=== PATIENT | female | born 1965 | race Caucasian/White ===

== ENCOUNTER 2019-05-13 18:57 | Inpatient (IN) ==
[2019-05-13] MEDS ORDERED: Ibuprofen 800 MG TABLET PO PRN (19:10)
[2019-05-13] MEDS: (Diclofenac Sodium [Voltaren] 100 GM) TP SCH (22:22)
[2019-05-13] MEDS: Gabapentin 300 MG CAPSULE PO SCH (22:23)
[2019-05-14] MEDS: *HR* OxyCODONE Immed Rel 5 MG TABLET PO PRN ×5 (00:34→22:24)
[2019-05-14] MEDS: Gabapentin 300 MG CAPSULE PO SCH ×3 (08:56→22:23)
[2019-05-14] MEDS: BuPROPion SR (12 HR) 150 MG TABLET PO SCH (08:56)
[2019-05-14] MEDS: *HR* Metformin 500 MG TABLET PO SCH (08:56)
[2019-05-14] MEDS: (Diclofenac Sodium [Voltaren] 100 GM) TP SCH ×2 (08:57→22:24)
[2019-05-14] MEDS ORDERED: hydroCHLOROthiazide 25 MG TABLET PO SCH (09:00)
--- NOTE | 2019-05-14 16:22 | Internal Med History&Physical ---
Date of Encounter: 05/14/19 Time of Encounter: 15:55 Assessment and Plan (1) Status post lumbar spinal fusion Current visit: No Status: Acute PT and OT evaluation with ongoing intervention will be done. Lovenox will be given for DVT prophylaxis. Follow up with Dr. Ty/staff as directed. (2) CKD (chronic kidney disease) stage 2, GFR 60-89 ml/min Current visit: Yes Status: Chronic HCTZ dose will be decreased. Ibuprofen will be discontinued. Renal indices will be monitored. (3) COPD (chronic obstructive pulmonary disease) Current visit: No Status: Acute Continue pro-air MDI as needed. Qualifiers: COPD type: unspecified COPD Qualified Code(s): J44.9 - Chronic obstructive pulmonary disease, unspecified (4) Diabetes Current visit: No Status: Chronic Hemoglobin A1c 7.8% on 05/09/2019. Continue Glucophage and Accu-Cheks with SSI. Qualifiers: Diabetes mellitus type: type 2 Diabetes mellitus jail insulin use: wit hout adjunct faculty for medical terminology use Diabetes mellitus complication status: without complication Qualified Code(s): E11.9 - Type 2 diabetes mellitus without complications (5) HTN (hypertension) Current visit: No Status: Chronic Reduce HCTZ to avoid worsening chronic kidney disease. Blood pressure will be monitored and medication adjusted as needed. Qualifiers: Hypertension type: essential hypertension Qualified Code(s): I10 - Essen tial (primary) hypertension (6) PTSD (post-traumatic stress disorder) Current visit: Yes Status: Acute Continue bupropion. Internal Medicine - H&P: HPI Chief complaint: Posterior lumbar interbody fusion L5-S1 Admitted From: Hospital to Hospital Transfer Plans for Post Hospital Care: Home History of present illness: Ms. Canada is a 53 year old female who was admitted [facility] swing bed 05/13/2019 following a May 10 stay at [facility] where she underwent L5-S1 posterior lumbar interbody fusion by Dr. Ty. Her postoperative course was unremarkable and she was discharged to [facility] swing bed for rehabilitation therapy prior to return to independent living at home. Musko skeletal history is pertinent for DJD. She denies gout or other bone joint or muscle disorders. Past Med Surg Social Fam HX - Past Medical History Medical history: arthritis, COPD, diabetes, hyperlipidemia, hypertension, liver disease, myocardial infarction, other Additional medical history: depression, DDD, malformation R lung, fatty liver, PTSD, plantar fasciitis, lumbar stenosis [facility] Psychiatric history: anxiety, depression, PTSD - Past Surgical History Surgical History: , cholecystectomy, other Additional surgical history: tonsillectomy, cardiac ablation, kidney stone surgery - Social History Smoking Status: Never smoker Smokeless Tobacco Status: No Alcohol use: none Drug use: cocaine - Family History Mother Family Member Ethnicity: Non- Living Status: Hx Family Cardiac Disorders: Yes Hx Family Cancer: Yes (Pancreatic, Bone) Hx Family Endocrine Disorder: Yes (DM) Father Family Member Ethnicity: Non- Living Status: Hx Family Cardiac Disorders: Yes (Stroke, HF, SD, HTN) Hx Family Endocrine Disorder: Yes (Liver disease) Brother Family Member Ethnicity: Non- Living Status: Hx Family Cardiac Disorders: Yes (HF) Hx Family Endocrine Disorder: Yes (DM) Sister Family Member Ethnicity: Non- Living Status: Hx Family Cardiac Disorders: Yes (HTN) Hx Family Endocrine Disorder: Yes (DM) Internal Medicine - H&P: Meds Albuterol Sulfate [Proventil Inhaler] 2 puff IH Q4HR PRN #1 unit 01/04/17 [Rx] BuPROPion SR (12 HR) [Wellbutrin SR] 150 mg PO DAILY 05/10/17 [History] Oxybutynin [Ditropan] 5 mg PO TID 05/10/17 [History] hydroCHLOROthiazide [Hydrochlorothiazide] 25 mg PO DAILY 05/10/17 [History] metFORMIN [Glucophage] 500 mg PO 0800 #30 tablet 11/10/18 [Rx] Diclofenac Sodium [Voltaren] 100 gm TP BID 05/10/19 [History] Doxepin HCl 10 mg PO HS 05/10/19 [History] Gabapentin [Neurontin] 600 mg PO TID 05/10/19 [History] Ibuprofen [Ibu] 800 mg PO BID PRN 05/10/19 [History] Docusate Sodium [Colace] 100 mg PO BID 5 Days #10 capsule 05/12/19 [Rx] OxyCODONE Immed Rel [Roxicodone 5 MG] 5 mg PO Q6HR PRN 5 Days #20 tablet 05/12/19 [Rx] Allergy/AdvReac Type Severity Reaction Status Date / Time No Known Allergies Allergy Verified 05/10/19 07:00 All Systems PM: A 10-system review of systems was performed and is negative for pertinent findings except as documented above in the HPI. Review of systems: Gen.: Her weight has decreased from 105.415 kg 05/10/2017 to 103.88 kg today. Cardiovascular: She has history of hypertension but denies SD heart failure angina DVT or pulmonary embolus. Echocardiogram 05/10/2017 showed LVEF of 60- 65%. No significant valvular abnormality was seen. Interventricular septum and posterior wall thickness measurements were 1.00 and 0.90 cm respectively. E/A ratio was 1.0. Regadenoson EST 05/11/2017 showed EKG and perfusion imaging negative for ischemia or infarct. Respiratory: She is lifelong nonsmoker. She reports a diagnosis of COPD from PFTs approximately 2015. She does not use home oxygen. She has not been tested for FILIBERTO. 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 She denies disorders otherwise of her liver gallbladder or exocrine pancreas : She was unaware she has chronic kidney disease stage 2-3. She denies other kidney or bladder disorders. Neurologic: She denies large distribution strokes or seizures. Endocrine: She was diagnosed with DM 2 approximately 2014. Hemoglobin A1c was 7.8% on 05/09/2019. She has hyperlipidemia. She denies thyroid disease. Hematology/oncology: She developed anemia postoperatively. She denies other b lood disorders or internal malignancies. Psychiatric: She claims a diagnosis of PTSD. She denies other mental health diagnoses. Musko skeletal: As per history of present illness - Constitutional Vitals: Temp Pulse Resp BP Pulse Ox 98.7 F 98 16 109/66 92 05/14/19 08:04 05/14/19 08:04 05/14/19 08:04 05/14/19 08:04 05/14/19 08:04 Exam: Gen.: She is a well-developed overweight female lying in bed who appears in no acute distress. She denies pain. HEENT: Head is atraumatic and normocephalic. Eyes: EOMI. There is no scleral icterus. Mouth: Mucosa is moist. Neck: There is no thyromegaly or adenopathy noted. Heart: Regular without murmurs gallops or ectopics Lungs: No wheezes or crackles are heard. Abdomen: She has a large abdomen. She is lying on her left side limiting good palpation. No tenderness is noted. Extremities: There is no cyanosis edema or clubbing noted. Dorsalis pedis and posterior tibial pulses are trace palpable bilaterally. Her feet are warm to touch. Neurologic: Mental status: She is talkative and a good historian. Cranial nerves: Smile is symmetric. Forehead wrinkles bilaterally. Tongue protrudes midline. EOMI. Motor: There is no pronator drift. Cerebellar: Finger to nose is intact bilaterally. Skin: Warm and dry
[2019-05-14] MEDS: Insulin LISPRO 300 UNITS/3 ML VIAL SQ SCH (22:24)
[2019-05-15] MEDS: *HR* OxyCODONE Immed Rel 5 MG TABLET PO PRN ×4 (04:44→21:29)
[2019-05-15] MEDS: *HR* Enoxaparin 40 MG/0.4 ML SYRINGE SQ SCH (04:45)
[2019-05-15 06:00] LABS: Basophils % 0.4 %; Eosinophils # 0.2 K/mcL (0.0-0.6); Eosinophils % 1.5 %; Hematocrit 28.1 % (35.3-44.9); Hemoglobin 9.3 g/dL (11.5-15.4); Immature Granulocytes % 1.2 % (0-4); Lymphocytes # 2.1 K/mcL (0.6-4.6); Lymphocytes % 19.1 %; Mean Corpuscular HGB Conc 33.1 g/dL (31.6-35.5); Mean Corpuscular Hemoglobin 29.9 pg (28.0-33.3); Mean Corpuscular Volume 90.4 fL (83.0-100.0); Mean Platelet Volume 11.1 fL (9.4-12.4); Monocytes # 0.9 K/mcL (0.0-1.3); Monocytes % 7.6 %; Neutrophils # 7.9 K/mcL (1.6-8.9); Platelet Count 251 K/mcL (140-400); Red Blood Count 3.11 M/mcL (3.82-4.97); Red Cell Distribution Width 13.5 % (11.5-14.5); Segmented Neutrophils % 70.2 %; White Blood Count 11.2 K/mcL (4.3-11.1)
[2019-05-15 06:18] LABS: BUN/Creatinine Ratio 18 (6-26); Blood Urea Nitrogen 16 mg/dL (6-20); Calcium 9.1 mg/dL (8.6-10.3); Carbon Dioxide 34 mEq/L (23-29); Chloride 92 mEq/L (98-107); Glucose 190 mg/dL (70-105); Osmolality,Calculated 286 (280-300); Potassium 3.5 mEq/L (3.5-5.1); Sodium 135 mEq/L (136-145); eGFR For African Americans > 60 (> 60); eGFR For Non-African Americans > 60 (> 60)
[2019-05-15] MEDS ORDERED: hydroCHLOROthiazide 25 MG TABLET PO SCH (09:00)
[2019-05-15] MEDS: Gabapentin 300 MG CAPSULE PO SCH ×3 (09:02→21:29)
[2019-05-15] MEDS: *HR* Metformin 500 MG TABLET PO SCH (09:03)
[2019-05-15] MEDS: BuPROPion SR (12 HR) 150 MG TABLET PO SCH (09:03)
[2019-05-15] MEDS: Insulin LISPRO 300 UNITS/3 ML VIAL SQ SCH ×4 (09:04→21:30)
[2019-05-15] MEDS: (Diclofenac Sodium [Voltaren] 100 GM) TP SCH ×2 (09:06→21:39)
[2019-05-15 09:32] LABS: Folate 15.6 ng/mL (3.0-16.0)
[2019-05-15 09:48] LABS: % Iron Saturation 12 % (15-50); Iron 30 mcg/dL (50-170); Transferrin 184 mg/dL (203-362)
[2019-05-15 10:06] LABS: Ferritin 347 ng/mL (10-120)
--- NOTE | 2019-05-15 15:07 | Internal Med Progress Note ---
Date of Encounter: 05/15/19 Time of Encounter: 15:00 - Assessment and plan (1) Status post lumbar spinal fusion Current Visit: No Status: Acute Assessment and plan: May 15. Continue PT/OT intervention with Lovenox. Follow-up with Dr. Ty/staff as directed. (2) CKD (chronic kidney disease) stage 2, GFR 60-89 ml/min Current Visit: Yes Status: Chronic Assessment and plan: May 15. Monitor renal indices. (3) COPD (chronic obstructive pulmonary disease) Current Visit: No Status: Acute Assessment and plan: May 15. Continue pro-air MDI as needed. Qualifiers: COPD type: unspecified COPD Qualified Code(s): J44.9 - Chronic obstructive pulmonary disease, unspecified (4) Diabetes Current Visit: No Status: Chronic Assessment and plan: May 15. Hemoglobin A1c was 7.8% on 05/09/2019. Continue Glucophage and Accu-Cheks with SSI. Qualifiers: Diabetes mellitus type: type 2 Diabetes mellitus terminal supervisor insulin use: without senior care use Diabetes mellitus complication status: without complication Qualified Code(s): E11.9 - Type 2 diabetes mellitus without complications (5) HTN (hypertension) Current Visit: No Status: Chronic Assessment and plan: May 15. Blood pressure borderline low. Hold HCTZ. Qualifiers: Hypertension type: essential hypertension Qualified Code(s): I10 - Essenti al (primary) hypertension (6) PTSD (post-traumatic stress disorder) Current Visit: Yes Status: Acute Assessment and plan: May 15. Continue bupropion - Subjective Interval history: May 15. She has no new complaints. She denies significant pain at rest but reports right hip discomfort on significant movement. - Constitutional Vitals: Temp Pulse Resp BP Pulse Ox 99.7 F H 91 18 107/69 90 05/15/19 07:46 05/15/19 07:46 05/15/19 07:46 05/15/19 07:46 05/15/19 07:46 Exam: She is resting comfortably in bed and appears in no acute distress. Her affect is overall cheerful. I reviewed her medications and lab results. Internal Medicine: Result - Labs CBC & Chem 7: 05/15/19 05:24 05/15/19 05:24 Labs: Short CBC 05/15/19 Range/Units 05:24 WBC 11.2 H (4.3-11.1) K/mcL Hgb 9.3 L (11.5-15.4) g/dL Hct 28.1 L (35.3-44.9) % Plt Count 251 (140-400) K/mcL Neutrophils # 7.9 (1.6-8.9) K/mcL BMP 05/15/19 05:24 Sodium 135 L Potassium 3.5 Chloride 92 L Carbon Dioxide 34 H BUN 16 Creatinine 0.90 Glucose 190 H Calcium 9.1 Consult Discharge Plan - Plan Referrals: Roberto Carlos Edmond DO [Primary Care Provider] - 1 week
[2019-05-16] MEDS: *HR* OxyCODONE Immed Rel 5 MG TABLET PO PRN ×3 (04:09→17:43)
[2019-05-16] MEDS: Ascorbic Acid 500 MG TABLET PO SCH (06:47)
[2019-05-16] MEDS: *HR* Enoxaparin 40 MG/0.4 ML SYRINGE SQ SCH (06:47)
[2019-05-16] MEDS: (Diclofenac Sodium [Voltaren] 100 GM) TP SCH ×2 (08:30→21:53)
[2019-05-16] MEDS: BuPROPion SR (12 HR) 150 MG TABLET PO SCH (08:36)
[2019-05-16] MEDS: Insulin LISPRO 300 UNITS/3 ML VIAL SQ SCH ×4 (08:36→21:52)
[2019-05-16] MEDS: *HR* Metformin 500 MG TABLET PO SCH (08:36)
[2019-05-16] MEDS: Gabapentin 300 MG CAPSULE PO SCH ×3 (08:36→21:52)
--- NOTE | 2019-05-16 16:33 | Internal Med Progress Note ---
Date of Encounter: 05/16/19 Time of Encounter: 16:26 - Assessment and plan (1) Status post lumbar spinal fusion Current Visit: No Status: Acute Assessment and plan: May 15. Continue PT/OT intervention with Lovenox. Follow-up with Dr. Ty/staff as directed. (2) CKD (chronic kidney disease) stage 2, GFR 60-89 ml/min Current Visit: Yes Status: Chronic Assessment and plan: May 15. Monitor renal indices. May 16. BUN and creatinine WNL at 16 and 0.90 respectively with estimated GFR> 60. Continue present Rx. (3) COPD (chronic obstructive pulmonary disease) Current Visit: No Status: Acute Assessment and plan: May 15. Continue pro-air MDI as needed. Qualifiers: COPD type: unspecified COPD Qualified Code(s): J44.9 - Chronic obstructive pulmonary disease, unspecified (4) Diabetes Current Visit: No Status: Chronic Assessment and plan: May 15. Hemoglobin A1c was 7.8% on 05/09/2019. Continue Glucophage and Accu-Cheks with SSI. Qualifiers: Diabetes mellitus type: type 2 Diabetes mellitus prison insulin use: without long winder tender use Diabetes mellitus complication status: without complication Qualified Code(s): E11.9 - Type 2 diabetes mellitus without complications (5) HTN (hypertension) Current Visit: No Status: Chronic Assessment and plan: May 15. Blood pressure borderline low. Hold HCTZ. Qualifiers: Hypertension type: essential hypertension Qualified Code(s): I10 - Essential (primary) hypertension (6) PTSD (post-traumatic stress disorder) Current Visit: Yes Status: Acute Assessment and plan: May 15. Continue bupropion (7) Anemia Current Visit: Yes Status: Acute Assessment and plan: May 16. Anemia testing yesterday showed iron 30, transferrin saturation 12%, transferrin 184, ferritin 347, B12 438, and folate 15.6. She was started on ferrous sulfate with ascorbic acid. Qualifiers: Anemia type: iron deficiency Iron deficiency anemia type: unspecified iron deficiency Qualified Code(s): D50.9 - Iron deficiency anemia, unspecified - Subjective Interval history: May 15. She has no new complaints. She denies significant pain at rest but reports right hip discomfort on significant movement. May 16. She has no new complaints. She denies any pain today. She states she is able to do ADLs and a significant amount of walking. She wishes to be discharged home tomorrow. - Constitutional Vitals: Temp Pulse Resp BP Pulse Ox 98.5 F 85 16 99/62 94 05/16/19 07:05 05/16/19 07:05 05/16/19 07:05 05/16/19 07:05 05/16/19 07:05 Exam: She is resting comfortably in bed and appears in no acute distress. Her affect is bright and cheerful. I reviewed her medications and lab results. Internal Medicine: Result - Labs CBC & Chem 7: 05/15/19 05:24 05/15/19 05:24 Consult Discharge Plan - Plan Referrals: Roberto Carlos Edmond DO [Primary Care Provider] - 1 week
[2019-05-17] MEDS: *HR* OxyCODONE Immed Rel 5 MG TABLET PO PRN ×2 (01:36→08:48)
[2019-05-17] MEDS: *HR* Enoxaparin 40 MG/0.4 ML SYRINGE SQ SCH (06:45)
[2019-05-17] MEDS: Ascorbic Acid 500 MG TABLET PO SCH (06:45)
[2019-05-17 06:53] VITALS: BP 107/58
[2019-05-17] MEDS: (Diclofenac Sodium [Voltaren] 100 GM) TP SCH (08:38)
[2019-05-17] MEDS: Gabapentin 300 MG CAPSULE PO SCH (08:48)
[2019-05-17] MEDS: Insulin LISPRO 300 UNITS/3 ML VIAL SQ SCH ×2 (08:49→12:27)
[2019-05-17] MEDS: BuPROPion SR (12 HR) 150 MG TABLET PO SCH (08:49)
[2019-05-17] MEDS: *HR* Metformin 500 MG TABLET PO SCH (08:49)
--- NOTE | 2019-05-17 10:31 | Discharge Summary ---
Date of Encounter: 05/17/19 Time of Encounter: 10:20 - Discharge Diagnosis (1) Status post lumbar spinal fusion Priority: Primary Status: Acute (2) CKD (chronic kidney disease) stage 2, GFR 60-89 ml/min Priority: Secondary Status: Chronic (3) COPD (chronic obstructive pulmonary disease) Priority: Secondary Status: Acute Qualifiers: COPD type: unspecified COPD Qualified Code(s): J44.9 - Chronic obstructive pulmonary disease, unspecified (4) Diabetes Priority: Secondary Status: Chronic Qualifiers: Diabetes mellitus type: type 2 Diabetes mellitus custodial insulin use: without continuous churn buttermaker use Diabetes mellitus complication status: without complication Qualified Code(s): E11.9 - Type 2 diabetes mellitus without complications (5) HTN (hypertension) Priority: Secondary Status: Chronic Qualifiers: Hypertension type: essential hypertension Qualified Code(s): I10 - Essential (primary) hypertension (6) PTSD (post-traumatic stress disorder) Priority: Secondary Status: Acute (7) Anemia Priority: Secondary Status: Acute Qualifiers: Anemia type: iron deficiency Iron deficiency anemia type: unspecified iron deficiency Qualified Code(s): D50.9 - Iron deficiency anemia, unspecified Hospital course: Ms. Canada is a 53 year old female who was admitted [facility] swing bed 05/13/2019 following a May 10 stay at [facility] where she underwent L5-S1 posterior lumbar interbody fusion by Dr. Ty. Her postoperative course was unremarkable and she was discharged to [facility] swing bed for rehabilitation therapy prior to return to independent living at home. I saw her on May 14 and performed a swing bed history and physical. She had physical therapy and occupational therapy evaluations with ongoing intervention. She made satisfactory progress and had no complaints of pain the last 2 days of hospitalization. On May 17 arrangements were complete for her to be discharged home. Anemia testing showed iron 30, transferrin saturation 12%, transferrin 184, ferritin 347, B12 438, and folate 15.6. She was started on ferrous sulfate with ascorbic acid and will remain on these at discharge. NSAIDs will be discontinued. HCTZ was held due to borderline hypotension. Her blood pressure returned to mid normal range. She will remain off HCTZ at discharge. She will follow with her PCP Dr. Edmond within 1 week. She will follow with Dr. Ty as directed. - Time Spent with Patient Total time spent providing and/or coordinating discharge services: - Discharge Medications Prescriptions: New Ferrous Sulfate 325 mg PO 0630 #30 tablet Ascorbic Acid [Vitamin C] 500 mg PO 0630 #30 tablet Continued Albuterol Sulfate [Proventil Inhaler] 2 puff IH Q4HR PRN #1 unit PRN Reason: Wheezing Oxybutynin [Ditropan] 5 mg PO TID BuPROPion SR (12 HR) [Wellbutrin SR] 150 mg PO DAILY Gabapentin [Neurontin] 600 mg PO TID Doxepin HCl 10 mg PO HS Diclofenac Sodium [Voltaren] 100 gm TP BID Docusate Sodium [Colace] 100 mg PO BID 5 Days #10 capsule OxyCODONE Immed Rel [Roxicodone 5 MG] 5 mg PO Q6HR PRN 5 Days #20 tablet PRN Reason: Severe Pain metFORMIN [Glucophage] 500 mg PO 0800 #30 tablet Discontinued hydroCHLOROthiazide [Hydrochlorothiazide] 25 mg PO DAILY Ibuprofen [Ibu] 800 mg PO BID PRN PRN Reason: Pain Home Medications: Albuterol Sulfate [Proventil Inhaler] 2 puff IH Q4HR PRN #1 unit 01/04/17 [Rx] BuPROPion SR (12 HR) [Wellbutrin SR] 150 mg PO DAILY 05/10/17 [History] Oxybutynin [Ditropan] 5 mg PO TID 05/10/17 [History] metFORMIN [Glucophage] 500 mg PO 0800 #30 tablet 11/10/18 [Rx] Diclofenac Sodium [Voltaren] 100 gm TP BID 05/10/19 [History] Doxepin HCl 10 mg PO HS 05/10/19 [History] Gabapentin [Neurontin] 600 mg PO TID 05/10/19 [History] Docusate Sodium [Colace] 100 mg PO BID 5 Days #10 capsule 05/12/19 [Rx] OxyCODONE Immed Rel [Roxicodone 5 MG] 5 mg PO Q6HR PRN 5 Days #20 tablet 05/12/19 [Rx] Ascorbic Acid [Vitamin C] 500 mg PO 0630 #30 tablet 05/17/19 [Rx] Ferrous Sulfate 325 mg PO 0630 #30 tablet 05/17/19 [Rx] Allergies/Adverse Reactions: Allergy/AdvReac Type Severity Reaction Status Date / Time No Known Allergies Allergy Verified 05/10/19 07:00 Date of admission: 05/13/19 19:30 Primary care physician: Roberto Carlos Edmond DO Consults: 05/13/19 19:39 Consult to Occupational Therapy [CONS] Routine Comment: Evaluate, develop and implement POC Reason for Consult: Evaluate, develop and implement POC Does patient have active BEDREST order?: No Is patient medically & hemodynamically stable?: Yes Patient assessed for mobility or mobilized this visit?: No Consult to Physical Therapy [CONS] Routine Comment: Evaluate, develop and implement POC Reason for Consult: Evaluate, develop and implement POC Does patient have active BEDREST order?: No Is patient medically & hemodynamically stable?: Yes Patient assessed for mobility or mobilized this visit?: No - Constitutional Vitals: Temp Pulse Resp BP Pulse Ox 98.2 F 85 17 107/58 93 05/17/19 06:48 05/17/19 06:48 05/17/19 06:48 05/17/19 06:48 05/17/19 06:48 - Patient Status Disposition: Home Health Service - Discharge Instructions Follow Up With: Roberto Carlos Edmond DO [Primary Care Provider] - 1 week - Diet and Activity Activity: as per physical therapy Diet: advance to your usual diet
--- NOTE | 2019-05-17 10:52 | Physician Discharge Referral ---
Home Health/Hosp Referral Info Transfer to: Home Health Attending Provider: Phani Provider in Charge Post Discharge: PCP ([facility]) - Diagnosis (1) Status post lumbar spinal fusion Priority: Primary Status: Acute (2) CKD (chronic kidney disease) stage 2, GFR 60-89 ml/min Priority: Secondary Status: Chronic (3) COPD (chronic obstructive pulmonary disease) Priority: Secondary Status: Acute (4) Diabetes Priority: Secondary Status: Chronic (5) HTN (hypertension) Priority: Secondary Status: Chronic (6) PTSD (post-traumatic stress disorder) Priority: Secondary Status: Acute (7) Anemia Priority: Secondary Status: Acute - Respiratory Orders Smoking Cessation: Smoking cessation has been advised. For more information, call the [place] Tobacco Quit Line at 5-011-ZAEY-NOW. - Diet/Nutrition Diet/Nutrition Orders: No Concentrated Sweets - Activity Activity Orders: Walker - Services Needed Following services are medically necessary services: Nursing, Home Health Aide, Physical Therapy, Occupational Therapy - Transfer Medications Prescriptions: Ferrous Sulfate 325 mg PO 0630 #30 tablet Prescription Printed Ascorbic Acid [Vitamin C] 500 mg PO 0630 #30 tablet Prescription Printed Home Medications: Albuterol Sulfate [Proventil Inhaler] 2 puff IH Q4HR PRN #1 unit 01/04/17 [Rx] BuPROPion SR (12 HR) [Wellbutrin SR] 150 mg PO DAILY 05/10/17 [History] Oxybutynin [Ditropan] 5 mg PO TID 05/10/17 [History] metFORMIN [Glucophage] 500 mg PO 0800 #30 tablet 11/10/18 [Rx] Diclofenac Sodium [Voltaren] 100 gm TP BID 05/10/19 [History] Doxepin HCl 10 mg PO HS 05/10/19 [History] Gabapentin [Neurontin] 600 mg PO TID 05/10/19 [History] Docusate Sodium [Colace] 100 mg PO BID 5 Days #10 capsule 05/12/19 [Rx] OxyCODONE Immed Rel [Roxicodone 5 MG] 5 mg PO Q6HR PRN 5 Days #20 tablet 05/12/19 [Rx] Ascorbic Acid [Vitamin C] 500 mg PO 0630 #30 tablet 05/17/19 [Rx] Ferrous Sulfate 325 mg PO 0630 #30 tablet 05/17/19 [Rx] Allergies/Adverse Reactions: Allergy/AdvReac Type Severity Reaction Status Date / Time No Known Allergies Allergy Verified 05/10/19 07:00 Certification: Further, I certify that my clinical findings support that this patient is homebound (i.e. absences from home require considerable and taxing effort and are for medical reasons or denominational services or infrequently or short duration when for other reasons) because: Homebound Reason: Post-surgery restriction and or conditions limit ability to leave home (Impaired walking ability secondary to lumbar spine surgery.) Attestation: My signature below is to certify that this patient is under my care and that I, or nurse practitioner, or a physician's staff physical therapy assistant working with me, has a [id number] encounter with this patient.
[2019-05-17] MEDS ORDERED: FLU Vac QV 19-20 (6Month+)/PF 0.5 ML SYRINGE IM ONE (11:58)
== END 2019-05-17 12:30 | disposition home health service (06) | DRG 949 ==
LOC: INPPIK 19:30
PROVIDERS: ADMIT Internal Medicine; ATTEND Internal Medicine